=== PATIENT | female | born 1990 | race Caucasian/White ===

== ENCOUNTER 2016-10-19 16:10 | Observation (INO) | payer MEDICARE, MEDICAID ==
[~2016-10-19] VITALS: Ht 167.6 cm; Wt 115.0 kg
[~2016-10-19 16:10] MED LIST: ALPR.5 PO; CYMB30CA PO; CYMB60CA PO; GABA600T PO; LEVO.15 PO; LISD70 PO; NORE1CHW4 CHEW; REME15TA PO
[2016-10-19 16:13] VITALS: BP 136/95; PULSE 108; RESP 20; TEMP 98; O2SAT 94
--- NOTE | 2016-10-19 16:34 | PD ---
HPI Chief Complaint: GI Complaint Time Seen by Provider: 16:34 Travel History International Travel<30 days: No Contact w/Intl Traveler<30days: No Traveled to known affect area: No History of Present Illness HPI 26-year-old female with history of 4-5 day history of nausea, vomiting , and diarrhea. Patient states all family has had similar symptoms. However today, the patient has developed worsening right-sided abdominal pain with radiation to the right flank and shoulder. Patient states a history of having her gallbladder out several years ago. Patient is felt febrile and chills. Patient denies chest pain, shortness of breath, or cough. Patient has no upper respiratory symptoms. Patient states her diarrhea is slowing down the last 24 hours, and she has not vomited since yesterday. Patient has been trying to keep fluids up, but has no appetite for food. Patient has allergies to Diamox, eggs, lactose, latex, penicillin, and vancomycin. She has an MRI precaution due to a shunt due to a skull malformation at . PFSH Past Medical History Arthritis: No Asthma: No Autoimmune Disease: No Blood Disorders: No Bipolar Disorder: Yes (BORDERLINE PERSONALITY) Anxiety: Yes Depression: Yes Heart Rhythm Problems: No Cancer: No Cardiovascular Problems: No High Cholesterol: No Chemotherapy: No Chest Pain: No Congestive Heart Failure: No COPD: No Cerebrovascular Accident: No Diabetes: No Diminished Hearing: No Endocrine: Yes (HYPOTHYROID) Gastrointestinal Disorders: Yes GERD: No Genitourinary: No Headaches: Yes Hepatitis: No Hiatal Hernia: No Hypertension: No Immune Disorder: No Implanted Vascular Access Dvce: Yes Kidney Stones: No Musculoskeletal: No Neurologic: Yes (CHIARI MALFORMATION TYPE 1, PSUEDOTUMOR, LEGALLY BLIND) Psychiatric: Yes ( PTSD) Reproductive: No Respiratory: No Immunizations Current: No Migraines: No Myocardial Infarction: No Radiation Therapy: No Renal Failure: No Seizures: No Sickle Cell Disease: No Sleep Apnea: No Thyroid Disease: Yes (HYPO) Ulcer: No ?: Not : 0 Para: 0 Miscarriage: 0 : 0 Past Surgical History Abdominal Surgery: Yes (CHOLECYSTECTOMY 06/2009) AICD: No Appendectomy: No Arteriovenous Shunt: No Body Medical Devices: LP & STUDENT SERVICES DIRECTOR SHUNTS Cardiac Surgery: No Cholecystectomy: Yes (2008) Ear Surgery: No Endocrine Surgery: No Eye Surgery: No Genitourinary Surgery: No Gynecologic Surgery: No Insulin Pump: No Joint Replacement: No Neurologic Surgery: Yes (LP [employer]UDENT SERVICES DIRECTOR SHUNT) Oral Surgery: No Pacemaker: No Thoracic Surgery: No Other Surgery: Yes (REVISIONS TO BOTH STUDENT SERVICES DIRECTOR AND LP SHUNTS) Social History Alcohol Use: Yes Tobacco Use: Yes (black and mild when drinks) Substance Use: No Allergies-Medications (Allergen,Severity, Reaction): Coded Allergies: Diamox (Verified Allergy, Severe, hives, 10/19/16) Egg Allergy (Verified Allergy, Severe, Hives, 10/19/16) Latex (Verified Allergy, Severe, ITCHING/RASH, 10/19/16) MRI PRECAUTION (Verified Allergy, Severe, NON MRI COMPATIBLE LUMBAR SHUNT 11/20/08 ([facility]), 10/19/16) Penicillin (Verified Allergy, Severe, Hives, 10/19/16) "ALL 'CILLINS" Vancomycin (Verified Allergy, Severe, ITCHING /PT STS HER DR GIVES HER BENADRYL & ZANTAC PRIOR TO , 10/19/16) Lactose (Verified Adverse Reaction, Severe, gi upset, 10/19/16) Reported Meds & Prescriptions Reported Meds & Active Scripts Active Vyvanse (Lisdexamfetamine Dimesylate) 70 Mg Cap 70 Mg PO DAILY Reported Cymbalta DR (Duloxetine HCl) 60 Mg Capdr 90 Mg PO DAILY Synthroid (Levothyroxine Sodium) Unknown Strength Tab 125 Mcg PO DAILY Xanax (Alprazolam) 0.5 Mg Tab 0.5 Mg PO BID PRN Review of Systems General / Constitutional: Positive: Fever, Chills Eyes: No: Visual changes HENT: No: Headaches Cardiovascular: No: Chest Pain or Discomfort Respiratory: No: Shortness of Breath Gastrointestinal: Positive: Nausea, Vomiting, Diarrhea, Abdominal Pain Genitourinary: Positive: Flank Pain, No: Urgency, Frequency, Dysuria, Discharge, Vaginal Bleeding Musculoskeletal: No: Pain Skin: No Rash Neurologic: No: Weakness Psychiatric: No: Depression Endocrine: No: Polydipsia Hematologic/Lymphatic: No: Easy Bruising Physical Exam Narrative GENERAL: Patient appears in moderate distress. SKIN: Warm and dry. No pallor. Normal turgor. HEAD: Atraumatic. Normocephalic. EYES: Pupils equal and round. No scleral icterus. No injection or drainage. ENT: No nasal bleeding or discharge. Mucous membranes pink and somewhat dry. Pharynx appears normal. Airway is patent. NECK: Trachea midline. Neck is supple nontender. CARDIOVASCULAR: Regular rate and rhythm. No murmurs gallops or rubs. RESPIRATORY: No accessory muscle use. Clear to auscultation. Breath sounds equal bilaterally. GASTROINTESTINAL: Abdomen soft, moderate diffuse epigastric and right upper abdomen discomfort with palpation, nondistended. No Chua's sign. Patient has mild to moderate CVA tenderness on the right. Hepatic and splenic margins not palpable. MUSCULOSKELETAL: Extremities without clubbing, cyanosis, or edema. No obvious deformities. NEUROLOGICAL: Awake and alert. No obvious cranial nerve deficits. Motor grossly within normal limits. Five out of 5 muscle strength in the arms and legs. Normal speech. PSYCHIATRIC: Appropriate mood and affect; insight and judgment normal. Data Data Last Documented VS Vital Signs Date Time Temp Pulse Resp B/P Pulse Ox O2 Delivery O2 Flow Rate FiO2 10/19/16 20:24 16 10/19/16 20:00 83 124/72 99 Room Air 10/19/16 16:13 98.0 Orders Complete Blood Count With Diff (10/19/16 16:49) Comprehensive Metabolic Panel (10/19/16 16:49) Lipase (10/19/16 16:49) Lactic Acid (10/19/16 16:49) Prothrombin Time / Inr (Pt) (10/19/16 16:49) Act Partial Throm Time (Ptt) (10/19/16 16:49) Urinalysis - C+S If Indicated (10/19/16 16:49) Ct Abd/Pel W Iv Contrast(Rout) (10/19/16 16:49) Iv Access Insert/Monitor (10/19/16 16:49) Ecg Monitoring (10/19/16 16:49) Oximetry (10/19/16 16:49) NPO (10/19/16 16:49) Morphine Inj (Morphine Inj) (10/19/16 17:00) Ondansetron Inj (Zofran Inj) (10/19/16 17:00) Pantoprazole Inj (Protonix Inj) (10/19/16 17:00) Sodium Chlor 0.9% 1000 Ml Inj (Ns 1000 M (10/19/16 16:49) Sodium Chloride 0.9% Flush (Ns Flush) (10/19/16 17:00) Electrocardiogram (10/19/16 16:49) Ketorolac Inj (Toradol Inj) (10/19/16 17:00) Ed Urine Pregnancytest Poc (10/19/16 16:49) Oral Contrast - Adult (10/19/16 16:59) Diatrizoate Liq ( Gastrotrace Liq) (10/19/16 17:42) Urine Culture (10/19/16 17:40) Creatine Kinase (Cpk) (10/19/16 18:24) Sodium Chlor 0.9% 1000 Ml Inj (Ns 1000 M (10/19/16 19:00) Iohexol 350 Inj (Omnipaque 350 Inj) (10/19/16 19:24) Hydromorphone Pf Inj (Dilaudid Pf Inj) (10/19/16 19:45) Ciprofloxacin 400 Mg Premix (Cipro 400 M (10/19/16 19:45) Labs Laboratory Tests Test 10/19/16 10/19/16 10/19/16 17:05 17:40 18:32 White Blood Count 7.7 TH/MM3 Red Blood Count 4.91 MIL/MM3 Hemoglobin 13.7 GM/DL Hematocrit 40.7 % Mean Corpuscular Volume 82.8 FL Mean Corpuscular Hemoglobin 27.9 PG Mean Corpuscular Hemoglobin 33.7 % Concent Red Cell Distribution Width 14.8 % Platelet Count 290 TH/MM3 Mean Platelet Volume 7.8 FL Neutrophils (%) (Auto) 60.5 % Lymphocytes (%) (Auto) 29.0 % Monocytes (%) (Auto) 5.9 % Eosinophils (%) (Auto) 3.8 % Basophils (%) (Auto) 0.8 % Neutrophils # (Auto) 4.6 TH/MM3 Lymphocytes # (Auto) 2.2 TH/MM3 Monocytes # (Auto) 0.5 TH/MM3 Eosinophils # (Auto) 0.3 TH/MM3 Basophils # (Auto) 0.1 TH/MM3 CBC Comment DIFF FINAL Differential Comment Sodium Level 141 MEQ/L Potassium Level 3.2 MEQ/L Chloride Level 109 MEQ/L Carbon Dioxide Level 23.6 MEQ/L Anion Gap 8 MEQ/L Blood Urea Nitrogen 6 MG/DL Creatinine 0.73 MG/DL Estimat Glomerular Filtration 95 ML/MIN Rate Random Glucose 99 MG/DL Lactic Acid Level 1.1 mmol/L Calcium Level 8.3 MG/DL Total Bilirubin 0.4 MG/DL Aspartate Amino Transf 24 U/L (AST/SGOT) Alanine Aminotransferase 47 U/L (ALT/SGPT) Alkaline Phosphatase 60 U/L Total Protein 7.5 GM/DL Albumin 3.4 GM/DL Lipase 118 U/L Urine Color DARK-YELLOW Urine Turbidity HAZY Urine pH 6.0 Urine Specific Section 1.046 Urine Protein 100 mg/dL Urine Glucose (UA) TRACE mg/dL Urine Ketones TRACE mg/dL Urine Occult Blood MOD Urine Nitrite NEG Urine Bilirubin SMALL Urine Urobilinogen 4.0 MG/DL Urine Leukocyte Esterase TRACE Urine RBC 2 /hpf Urine WBC 11 /hpf Urine WBC Clumps RARE Urine Squamous Epithelial 7 /hpf Cells Urine Hyaline Casts 70 /lpf Urine Granular Casts 12 /lpf Urine Mucus MANY /lpf Microscopic Urinalysis Comment CULTURE INDICATED Total Creatine Kinase 125 U/L MDM Medical Decision Making Medical Screen Exam Complete: Yes Emergency Medical Condition: Yes Differential Diagnosis Right upper abdominal pain. Gastritis. Renal colic. Pancreatitis. Biliary tract disease. Narrative Course Patient is medically stable at time of exam. Labs ordered including CBC, CMP, PT PTT and INR, Lactic acid, urinalysis, lipase. IV access is obtained patient is given 1000 and a normal saline bolus. Patient is given 4 mg Zofran IV. Patient is given 40 mg pantoprazole IV. Patient is given 30 mg Toradol IV. EKG is ordered. CT of the abdomen is ordered with IV and oral contrast. EKG shows normal sinus rhythm without ST changes. This is reviewed by Dr. Ramirez. CBC is unremarkable. Sodium is 141, potassium 3.2, chloride 109, BUN 6, creatinine 0.73, calcium 8.3. Lipase is normal. LFTs are normal. Alkaline phosphatase is 60. Total creatinine kinase is 125. Urine shows dark yellow hazy with a pH is 6.0, specific gravity 1.046, protein is 100, trace glucose, ketones, moderate occult blood small bilirubin, urobilinogen of 4.0, trace of glucose site esterase. Urine rbc's are 2, diureses 11, MB seek clumps are rare. Urine culture is ordered. CT scan is unremarkable for acute process per radiologist. Patient returns to emergency department and gets 400 mg Cipro IV, as well as 1 mg hydromorphone IV. Patient is given a second 1 L bolus of normal saline. Patient is discussed with Dr. Chin who recommended bringing the patient for observation she is unable to keep solid pills down, and is obviously dehydrated and in intractable pain. 2009 hrs. call was placed to the hospitalist for observation admission. 2024 hrs. patient is discussed with Dr. Chanel. Diagnosis Primary Impression: Pyelonephritis Additional Impressions: Intractable abdominal pain Nausea & vomiting Qualified Code: R11.2 - Non-intractable vomiting with nausea, unspecified vomiting type Dehydration Admitting Information Admitting Physician Requests: Observation Condition: Stable Carl Gabriel Oct 19, 2016 16:34
[2016-10-19 16:40] VITALS: BP 121/86; PULSE 91; RESP 16; O2SAT 99
[2016-10-19] MEDS ORDERED: CYMB60CA PO (16:47)
[2016-10-19] MEDS ORDERED: SODIUM CHLOR 0.9% 1000 ML INJ 1,000 ML IV SCH ×2 (16:49→22:00)
[2016-10-19] MEDS ORDERED: KETOROLAC TROMETHAMINE 30 MG/ML (IVP) VIAL IVP ONE (17:00)
[2016-10-19] MEDS ORDERED: SODIUM CHLORIDE 0.9% FLUSH 5 ML FLUSH IVF PRN (17:00)
[2016-10-19] MEDS ORDERED: PANTOPRAZOLE SODIUM 40 MG VIAL IVP ONE (17:00)
[2016-10-19] MEDS ORDERED: ONDANSETRON HCL 4 MG/2 ML VIAL IVP ONE (17:00)
[2016-10-19] MEDS ORDERED: MORPHINE SULFATE 4 MG/ML INJ IV PUSH ONE (17:00)
[2016-10-19 17:21] LABS: AUTOMATED NEUTROPHIL # 4.6 TH/MM3 (1.8-7.7); BASOPHIL # 0.1 TH/MM3 (0-0.2); BASOPHIL % 0.8 % (0.0-2.0); EOSINOPHIL # 0.3 TH/MM3 (0-0.4); EOSINOPHIL % 3.8 % (0.0-4.0); HEMATOCRIT 40.7 % (35.0-46.0); HEMO FLAGS DIFF FINAL; LYMPHOCYTE # 2.2 TH/MM3 (1.0-4.8); MEAN CELL VOLUME 82.8 FL (80.0-100.0); MEAN CORPUSCULAR HEMOGLOBIN 27.9 PG (27.0-34.0); MEAN CORPUSCULAR HGB CONC 33.7 % (32.0-36.0); MONO % 5.9 % (0.0-8.0); NEUT % 60.5 % (16.0-70.0); PLATELET COUNT 290 TH/MM3 (150-450); RED BLOOD COUNT 4.91 MIL/MM3 (4.00-5.30); RED CELL DISTRIBUTION WIDTH 14.8 % (11.6-17.2); WHITE BLOOD COUNT 7.7 TH/MM3 (4.0-11.0)
[2016-10-19 17:30] VITALS: BP 129/78; PULSE 90; RESP 22; O2SAT 100
[2016-10-19 17:40] LABS: ALT (GPT) 47 U/L (10-53); ANION GAP 8 MEQ/L (5-15); AST (GOT) 24 U/L (15-37); BICARBONATE 23.6 MEQ/L (21.0-32.0); BLOOD UREA NITROGEN 6 MG/DL (7-18); CHLORIDE 109 MEQ/L (98-107); GLOMERULAR FILTRATION RATE 95 ML/MIN (>89); POTASSIUM 3.2 MEQ/L (3.5-5.1); SODIUM (NA) 141 MEQ/L (136-145)
[2016-10-19] MEDS ORDERED: DIATRIZOATE MEGLUM/DIATRIZOATE SOD 9 ML CUP ONE (17:42)
[2016-10-19 17:43] LABS: ALKALINE PHOSPHATASE 60 U/L (45-117); TOTAL BILIRUBIN ADULT 0.4 MG/DL (0.2-1.0)
[2016-10-19 17:53] VITALS: O2SAT 97
[2016-10-19 18:05] LABS: BLOOD, URINE MOD (NEG); COMMENT (UR) CULTURE INDICATED; CULTURE IF INDICATED CULTURE INDICATED; GLUCOSE,URINE TRACE mg/dL (NEG); GRANULAR CAST, URINE 12 /lpf; HYALINE CAST, URINE 70 /lpf (RARE); KETONE, URINE TRACE mg/dL (NEG); MUCUS URINE MANY /lpf (OCC); NITRITE,URINE NEG (NEG); SQUAMOUS EPITHELIAL CELL URINE 7 /hpf (0-5); URINE COLOR DARK-YELLOW (YELLW/STRAW)
[2016-10-19] MEDS ORDERED: SODIUM CHLOR 0.9% 1000 ML INJ 1,000 ML IV ONE (19:00)
[2016-10-19] MEDS ORDERED: IOHEXOL 350 MG/ML 10 ML VIAL (for RAD DIAG) IV ONE (19:24)
[2016-10-19] MEDS ORDERED: CIPROFLOXACIN 400 MG PREMIX 200 ML IV ONE (19:45)
[2016-10-19] MEDS ORDERED: HYDROmorphone HCL PF 1 MG/ML VIAL IV PUSH ONE (19:45)
--- NOTE | 2016-10-19 19:46 | RADRPT ---
EXAM DATE/TIME: 10/19/2016 19:04 [facility] COMPARISON: No previous studies available for comparison. INDICATIONS : Right flank pain today and flu like symptoms for one week. IV CONTRAST: 95 cc Omnipaque 350 (iohexol) IV ORAL CONTRAST: Prescribed oral contrast ingested. RADIATION DOSE: 24.10 CTDIvol (mGy) MEDICAL HISTORY : None SURGICAL HISTORY : Cholecystectomy. ENCOUNTER: Initial ACUITY: 1 day PAIN SCALE: 6/10 LOCATION: Right flank TECHNIQUE: Volumetric scanning of the abdomen and pelvis was performed. Using automated exposure control and adjustment of the mA and/or kV according to patient size, radiation dose was kept as low as reasonably achievable to obtain optimal diagnostic quality images. FINDINGS: LOWER LUNGS: The visualized lower lungs are clear. LIVER: Homogeneous density without lesion. There is no dilation of the biliary tree. No calcifi ed gallstones. SPLEEN: Normal size without lesion. PANCREAS: Within normal limits. KIDNEYS: Normal in size and shape. There is no mass, stone or hydronephrosis. ADRENAL GLANDS: Within normal limits. VASCULAR: There is no aortic aneurysm. BOWEL/MESENTERY: The stomach, small bowel, and colon demonstrate no acute abnormality. There is no free intraperitoneal air or fluid. ABDOMINAL WALL: Within normal limits. RETROPERITONEUM: There is no lymphadenopathy. BLADDER: No wall thickening or mass. REPRODUCTIVE: Within normal limits. INGUINAL: There is no lymphadenopathy or hernia. MUSCULOSKELETAL: Within normal limits for patient age. Shunt is evident. CONCLUSION: Negative for acute process. Krystian Mario MD FACR on October 19, 2016 at 19:43 Board Certified Radiologist. This report was verified electronically.
[2016-10-19 20:00] VITALS: BP 124/72; PULSE 83; RESP 16; O2SAT 99
[2016-10-19 20:52] LABS: APTT (PATIENT) 27.8 SEC (24.3-30.1); PROTHROMBIN TIME - PATIENT 11.3 SEC (9.8-11.6)
[2016-10-19] MEDS ORDERED: ALPRAZolam 0.5 MG TAB PO PRN (22:00)
[2016-10-19] MEDS ORDERED: SODIUM CHLORIDE 0.9% FLUSH 5 ML FLUSH FLUSH PRN (22:00)
[2016-10-19] MEDS ORDERED: NALOXONE HCL 0.4 MG/ML AMP IV PRN (22:00)
--- NOTE | 2016-10-19 22:03 | HHI.HP ---
[facility] Service [facility] Primary Care Physician ASHLY Arias Admission Diagnosis Pylonephritis/Vomiting/Dehydration/Intractible abd. pain Diagnoses: Chief Complaint: abdominal pain Travel History International Travel<30 Days: No Contact w/Intl Traveler <30 Da: No Traveled to Known Affected Are: No History of Present Illness History from patient, ER PA communication, and review of medical records. Patient reported that she came to the hospital because she is having right upper quadrant pain which is radiating to her right flank which started today. She states that she has been having stomach flu for the past 1 week. When asked about clarification, patient stated that she was having nausea, vomiting, diarrhea with subjective fevers for the past 1 week. Her family members also have been sick with similar symptoms. She reports her vomiting and her diarrhea is more than 5 times a day at that time. However denies any blood in her vomit or diarrhea. Denies any urinary burning or pain on urination or frequent urination. She states that the diarrhea and the vomiting has now stopped somewhat. She states she took Imodium for this. Patient denies working at healthcare facilities or nursing homes. However her boyfriend works at a hospital. Denies any prior antibiotics use or history of C. difficile. Denies being a diabetic. Patient does report of history of Arnold-Chiari malformation for which she has a SUPERVISOR PASTE MIXING shunt. The last shunt that was placed was 5 years ago. She stated she has a total of 15 procedures in her lifetime for this SUPERVISOR PA[employer] MIX[employer] shunt. Mostly it is revisions or removal of the shunt due to infection. She states for the past 5 years though, she has been free of any complications from this SUPERVISOR PA[employer] M[employer] shunt. She reports that when she presented again with SUPERVISOR PA[employer] M[employer] shunt infection, she usually would have abdominal pain first. She then would start having some headaches about 2-3 days later. She usually does not mount any fever. Usually also does not have leukocytosis or lab abnormalities to suggest infection. However when they removed her SUPERVISOR PA[employer] M[employer] shunt, the cultures were positive and she had to be on antibiotics long-term and hospitalized long-term. At this point, patient states she is not worried about her SUPERVISOR PA[employer] M[employer] shunt infection. She denies having any headaches. Like getting any neck rigidity. She does have some visual disturbances but this is her baseline status and she is also legally blind. Her neurosurgeon is Dr. Shelton at [facility]. Patient reports that if she has to have any manipulations or procedures for her SUPERVISOR PA[employer] M[employer] shunt, she would like to be transferred to [facility] where her neurosurgeon is. Review of Systems Constitutional: COMPLAINS OF: Diaphoretic episodes, Fever (subjective fevers), Chills, DENIES: Fatigue, Weight gain, Weight loss Eyes: COMPLAINS OF: Vision loss Respiratory: DENIES: Apneas, Cough, Snoring, Wheezing, Sputum production, Shortness of breath Cardiovascular: DENIES: Chest pain, Palpitations, Syncope, Dyspnea on Exertion , PND, Lower Extremity Edema Gastrointestinal: COMPLAINS OF: Abdominal pain, Diarrhea, Nausea, Vomiting, DENIES: Black stools, Bloody stools, Constipation Genitourinary: DENIES: Urinary frequency, Urinary incontinence, Urgency, Hematuria, Dysuria, Nocturia Neurologic: DENIES: Abnormal gait, Headache, Seizures, Poor Balance Past Family Social History Past Medical History Arnold-Chiari malformation Visual impairment Status post SUPERVISOR PASTE MIX[employer] shunt placementwith multiple revisions and replacements 15. Last one was 5 years ago. History of SUPERVISOR PASTE MIX[employer] shunt infections Anxiety/depression Hypothyroidism Past Surgical History SUPERVISOR PASTE MIXING shunt Revision/replacement Cholecystectomy Reported Medications Patient's medications list on EMRreviewed Allergies: Coded Allergies: Diamox (Verified Allergy, Severe, hives, 10/19/16) Egg Allergy (Verified Allergy, Severe, Hives, 10/19/16) Latex (Verified Allergy, Severe, ITCHING/RASH, 10/19/16) MRI PRECAUTION (Verified Allergy, Severe, NON MRI COMPATIBLE LUMBAR SHUNT 11/20/08 ([facility]), 10/19/16) Penicillin (Verified Allergy, Severe, Hives, 10/19/16) "ALL 'CILLINS" Vancomycin (Verified Allergy, Severe, ITCHING /PT STS HER DR GIVES HER BENADRYL & ZANTAC PRIOR TO , 10/19/16) Lactose (Verified Adverse Reaction, Severe, gi upset, 10/19/16) Family History Reports she has only limited family history as she was mostly in foster care. States that her mother from eclampsia/preeclampsia. Social History Smokes about half a pack a day. Denies any alcohol abuse or drug abuse. Physical Exam Vital Signs Vital Signs Date Time Temp Pulse Resp B/P Pulse Ox O2 Delivery O2 Flow Rate FiO2 10/19/16 20:24 16 10/19/16 20:00 83 16 124/72 99 Room Air 10/19/16 19:00 16 10/19/16 19:00 16 10/19/16 17:53 97 Room Air 10/19/16 17:30 90 22 129/78 100 Room Air 10/19/16 16:40 91 16 121/86 99 Room Air 10/19/16 16:13 98.0 108 20 136/95 94 Room Air Physical Exam GENERAL: This is a well-nourished, well-developed patient, in no apparent distress. SKIN: No rashes, ecchymoses or lesions. Cool and dry. HEAD: Atraumatic. Normocephalic. No temporal or scalp tenderness. EYES: No scleral icterus. No injection or drainage. ENT: Nose without bleeding, purulent drainage or septal hematoma. Airway patent. NECK: Trachea midline. No JVD. Supple, nontender, no meningeal signs. CARDIOVASCULAR: Regular rate and rhythm without murmurs, gallops, or rubs. RESPIRATORY: Clear to auscultation. Breath sounds equal bilaterally. No wheezes , rales, or rhonchi. GASTROINTESTINAL: Abdomen soft, nondistended. No guarding. Tenderness at right upper quadrant abdomen and right flank area MUSCULOSKELETAL: Extremities without clubbing, cyanosis, or edema. No calf tenderness. NEUROLOGICAL: Awake and alert. Motor and sensory grossly within normal limits. Normal speech. Laboratory Laboratory Tests Test 10/19/16 10/19/16 10/19/16 10/19/16 17:05 17:40 18:32 20:03 White Blood Count 7.7 Red Blood Count 4.91 Hemoglobin 13.7 Hematocrit 40.7 Mean Corpuscular Volume 82.8 Mean Corpuscular Hemoglobin 27.9 Mean Corpuscular Hemoglobin 33.7 Concent Red Cell Distribution Width 14.8 Platelet Count 290 Mean Platelet Volume 7.8 Neutrophils (%) (Auto) 60.5 Lymphocytes (%) (Auto) 29.0 Monocytes (%) (Auto) 5.9 Eosinophils (%) (Auto) 3.8 Basophils (%) (Auto) 0.8 Neutrophils # (Auto) 4.6 Lymphocytes # (Auto) 2.2 Monocytes # (Auto) 0.5 Eosinophils # (Auto) 0.3 Basophils # (Auto) 0.1 CBC Comment DIFF FINAL Differential Comment Sodium Level 141 Potassium Level 3.2 Chloride Level 109 Carbon Dioxide Level 23.6 Anion Gap 8 Blood Urea Nitrogen 6 Creatinine 0.73 Estimat Glomerular Filtration 95 Rate Random Glucose 99 Lactic Acid Level 1.1 Calcium Level 8.3 Total Bilirubin 0.4 Aspartate Amino Transf 24 (AST/SGOT) Alanine Aminotransferase 47 (ALT/SGPT) Alkaline Phosphatase 60 Total Protein 7.5 Albumin 3.4 Lipase 118 Urine Color DARK-YELLOW Urine Turbidity HAZY Urine pH 6.0 Urine Specific [place] 1.046 Urine Protein 100 Urine Glucose (UA) TRACE Urine Ketones TRACE Urine Occult Blood MOD Urine Nitrite NEG Urine Bilirubin SMALL Urine Urobilinogen 4.0 Urine Leukocyte Esterase TRACE Urine RBC 2 Urine WBC 11 Urine WBC Clumps RARE Urine Squamous Epithelial 7 Cells Urine Hyaline Casts 70 Urine Granular Casts 12 Urine Mucus MANY Microscopic Urinalysis Comment CULTURE INDICATED Total Creatine Kinase 125 Prothrombin Time 11.3 Prothromb Time International 1.0 Ratio Activated Partial 27.8 Thromboplast Time Date/Time Procedure Status Source Growth 10/19/16 17:40 Urine Culture Received Urine Clean Catch Pending Result Diagram: 10/19/16 1705 10/19/16 1705 Imaging Last 48 hours Impressions Abdomen/Pelvis CT 10/19/16 1649 Signed Impressions: Service Date/Time: October 19:04 - CONCLUSION: Negative for acute process. Krystian Mario MD FACR Assessment and Plan Problem List: (1) Nausea & vomiting ICD Code: R11.2 Status: Acute (2) Intractable abdominal pain ICD Code: R10.9 Status: Acute (3) Pyelonephritis ICD Code: N12 Status: Acute (4) Dehydration ICD Code: E86.0 Status: Acute Assessment and Plan Impression: UTI Likely pyelonephritisgiven that patient has nausea/vomiting/flank pain. Possible gastroenteritisresolving per patient's history. Has sick contact with similar symptoms as well. Rule out peritonitis given that patient has SUPERVISOR PA[employer] M[employer] shunt. Arnold-Chiari malformation Visual impairment Status post SUPERVISOR PA[employer] M[employer] shunt placementwith multiple revisions and replacements 15. Last one was 5 years ago. History of SUPERVIS[employer] M[employer] shunt infections Anxiety/depression Hypothyroidism Plan: IV hydration. We'll follow up blood cultures and urine culture results. Start patient on Cipro 400 mg IV every 12 hours with Flagyl 500 mg IV every 6 hours. We'll follow up clinically. CT abdomen and pelvis with IV contrastpersonally reviewed. No evidence of perforated ulcers/appendicitis. At this point, patient does not have any headache/neck rigidity/high-grade fevers to suspect SUPER[employer] shunt infection. Patient is well versed in her medical conditions. She states that she usually presents with normal blood work, normal white count, negative blood cultures, with abdominal pain which is usually followed 2 or 3 days later by headaches whenever she had SUPER[employer] shunt infections. At present, she absolutely denies any symptoms similar to the SUPER[employer] shunt infection symptoms. If in fact, we do suspect SUPER[employer] PA[employer] shunt infection or if cultures are positive, patient would like to be transferred to [facility] under the care of her neurosurgeon Dr. Shelton. Resume her home medications. DVT prophylaxiswith Lovenox Discussed Condition With Patient, ER physician Problem Qualifiers (1) Nausea & vomiting: Qualified Code: R11.2 - Non-intractable vomiting with nausea, unspecified vomiting type Connie Chanel MD Oct 19, 2016 22:03
[2016-10-19 22:30] VITALS: BP 121/71; PULSE 86; RESP 16; O2SAT 98
[2016-10-19] MEDS: metroNIDAZOLE 500 MG INJ 100 ML IV SCH (22:53)
[2016-10-19] MEDS: NS + KCL 40 MEQ INJ 1,000 ML IV SCH (23:15)
[2016-10-19] MEDS: POTASSIUM CHLOR 20 MEQ PREMIX 100 ML IV SCH (23:47)
[2016-10-20] VITALS (10 sets, daily range): BP systolic 102–135; BP diastolic 51–78; PULSE 53–94; RESP 18–20; TEMP 97.2–98.2; O2SAT 93–98
[2016-10-20] MEDS: HYDROmorphone HCL PF 1 MG/ML VIAL IV PUSH PRN ×5 (00:09→19:49)
[2016-10-20] MEDS: POTASSIUM CHLOR 20 MEQ PREMIX 100 ML IV SCH (02:18)
[2016-10-20] MEDS: metroNIDAZOLE 500 MG INJ 100 ML IV SCH ×4 (04:02→22:16)
[2016-10-20 04:31] LABS: AUTOMATED NEUTROPHIL # 2.8 TH/MM3 (1.8-7.7); BASOPHIL % 0.4 % (0.0-2.0); EOSINOPHIL # 0.2 TH/MM3 (0-0.4); EOSINOPHIL % 3.4 % (0.0-4.0); HEMO FLAGS DIFF FINAL; LYMPH % 45.1 % (9.0-44.0); LYMPHOCYTE # 2.9 TH/MM3 (1.0-4.8); MEAN CELL VOLUME 83.6 FL (80.0-100.0); MEAN CORPUSCULAR HGB CONC 33.5 % (32.0-36.0); NEUT % 44.1 % (16.0-70.0); PLATELET COUNT 257 TH/MM3 (150-450); RED BLOOD COUNT 4.18 MIL/MM3 (4.00-5.30); WHITE BLOOD COUNT 6.4 TH/MM3 (4.0-11.0)
[2016-10-20 05:12] LABS: BICARBONATE 25.2 MEQ/L (21.0-32.0); CALCIUM-PROTEIN CORRECTED 7.7 MG/DL (8.5-10.1); POTASSIUM 3.6 MEQ/L (3.5-5.1); TOTAL BILIRUBIN ADULT 0.4 MG/DL (0.2-1.0)
[2016-10-20] MEDS: NS + KCL 40 MEQ INJ 1,000 ML IV SCH ×2 (05:23→12:57)
[2016-10-20] MEDS: LEVOTHYROXINE SODIUM 125 MCG TAB PO SCH (05:23)
[2016-10-20] MEDS ORDERED: LISDEXAMFETAMINE DIMESYLATE 30 MG CAP PO SCH (09:00)
[2016-10-20] MEDS ORDERED: LISDEXAMFETAMINE DIMESYLATE 20 MG CAP PO SCH (09:00)
[2016-10-20] MEDS: SODIUM CHLORIDE 0.9% FLUSH 5 ML FLUSH FLUSH SCH ×2 (09:00→22:16)
[2016-10-20] MEDS ORDERED: [UNRECOGNIZED DRUG - OTHER] PO SCH (09:00)
[2016-10-20] MEDS ORDERED: LISDEXAMFETAMINE PO SCH (09:00)
[2016-10-20] MEDS: CIPROFLOXACIN 400 MG PREMIX 200 ML IV SCH ×2 (09:37→19:47)
[2016-10-20] MEDS: ENOXAPARIN SODIUM 40 MG/0.4 ML SYRINGE SQ SCH (09:38)
[2016-10-20] MEDS: DULoxetine HCl DR 30 MG CAP PO SCH (09:38)
[2016-10-20] MEDS: ONDANSETRON HCL 4 MG/2 ML VIAL IVP PRN ×2 (13:08→19:46)
--- NOTE | 2016-10-20 14:15 | HHI.PR ---
Subjective Remarks Follow up for intractable nausea/vomiting/diarrhea with RUQ/flank pain, UTI. The patient reports feeling slightly better today. Abdominal pain improved. No further nausea/vomiting since yesterday. Only having very small amounts of diarrhea. Denies fevers/chills. Denies any dysuria, increased urinary frequency/ urgency. She was able to tolerate broth for breakfast this morning. She states everyone in her family had the same illness and is better now, however it always takes her longer to recover. Discussed with the patient's significant other (with permission from the patient) who is a nurse here at [employer]. Objective Vitals Vital Signs Date Time Temp Pulse Resp B/P Pulse Ox O2 Delivery O2 Flow Rate FiO2 10/20/16 11:47 97.2 81 20 104/53 94 10/20/16 08:00 71 10/20/16 07:14 98.2 80 18 135/60 93 10/20/16 05:00 98.2 87 18 129/72 97 10/20/16 01:02 94 10/20/16 00:57 97.9 78 18 133/78 98 10/19/16 22:30 86 16 121/71 98 Room Air 10/19/16 20:24 16 10/19/16 20:00 83 16 124/72 99 Room Air 10/19/16 19:00 16 10/19/16 19:00 16 10/19/16 17:53 97 Room Air 10/19/16 17:30 90 22 129/78 100 Room Air 10/19/16 16:40 91 16 121/86 99 Room Air 10/19/16 16:13 98.0 108 20 136/95 94 Room Air Result Diagram: 10/20/16 0345 10/20/16 0345 Imaging Last Impressions Abdomen/Pelvis CT 10/19/16 1649 Signed Impressions: Service Date/Time: October 19:04 - CONCLUSION: Negative for acute process. Krystian Mario MD FACR Objective Remarks GENERAL: Well-nourished, well-developed female patient in [facility]. SKIN: Warm and dry. No rash. HEAD: Normocephalic. Atraumatic. EYES: Pupils equal and round. No scleral icterus. No injection or drainage. ENT: No nasal bleeding or discharge. Mucous membranes pink and moist. NECK: Supple. Trachea midline. CARDIOVASCULAR: Regular rate and rhythm. S1, S2 noted. No murmur appreciated. RESPIRATORY: No accessory muscle use. Clear to auscultation. Breath sounds equal bilaterally. GASTROINTESTINAL: Abdomen soft, non-tender, nondistended. Normoactive bowel sounds x4. MUSCULOSKELETAL: No obvious deformities. Extremities without clubbing, cyanosis , or edema. NEUROLOGICAL: Awake and alert. No obvious cranial nerve deficits. Motor grossly within normal limits. Normal speech. PSYCHIATRIC: Appropriate mood and affect; insight and judgment normal. Medications and IVs Current Medications Medications (Trade) Dose Ordered Sig/Pedro Route Start Time Stop Time Status Last Admin (NS Flush) 2 ml UNSCH PRN FLUSH 10/19/16 22:00 (NS Flush) 2 ml BID FLUSH 10/20/16 09:00 (Zofran Inj) 4 mg Q6H PRN IVP 10/19/16 22:00 10/20/16 13:08 (Lovenox Inj) 40 mg Q24H SQ 10/20/16 09:00 10/20/16 09:38 (Narcan Inj) 0.4 mg UNSCH PRN IV 10/19/16 22:00 Hydromorphone HCl 1 mg 1 mg Q3H PRN IV PUSH 10/19/16 22:00 10/20/16 12:57 Ciprofloxacin/ Dextrose 200 ml @ 200 mls/hr Q12H IV 10/20/16 09:00 10/20/16 09:37 Metronidazole 100 ml @ 100 mls/hr Q6H IV 10/19/16 22:00 10/20/16 09:36 (NS + KCl 40 Meq Inj) 1,000 ml @ 125 mls/hr Q8H IV 10/19/16 22:00 10/20/16 12:57 (Xanax) 0.5 mg BID PRN PO 10/19/16 22:00 (Cymbalta Dr) 90 mg DAILY PO 10/20/16 09:00 10/20/16 09:38 (Synthroid) 125 mcg DAILY@06 PO 10/20/16 06:00 10/20/16 05:23 Non-Formulary Medication 1 ea DAILY PO 10/20/16 09:00 Hold Urinary Catheter: No Vascular Central Line Catheter: No A/P Problem List: (1) Nausea & vomiting ICD Code: R11.2 Status: Acute (2) Intractable abdominal pain ICD Code: R10.9 Status: Acute (3) Pyelonephritis ICD Code: N12 Status: Acute (4) Dehydration ICD Code: E86.0 Status: Acute Assessment and Plan 26-year-old female with hx of Arnold-Chiari malformation with shunt placement, visual impairment, anxiety/depression, hypothyroidism, presents with intractable N/V/D/abdominal pain. Intractable Nausea/Vomiting/Diarrhea/Abdominal Pain: suspect gastroenteritis, possible C.diff (with exposure to significant other who is a nurse) or Norovirus. Recent sick contacts. -CT abd/pelvis images reviewed by me, no acute findings -Started on IV Cipro/Flagyl -check stool studies, C.diff PCR, and Norovirus -start on PPI for now -supportive treatment with IVF, antiemetics, pain control prn. -diet as tolerated UTI: possible pyelonephritis with R flank pain, and UA + leuks, WBCs; however patient without any fever/dysuria/frequency/urgency -continue on IV Cipro as above -monitor urine culture. Hypokalemia: K 3.2 upon arrival, likely secondary to GI losses as above -given po and IV KCl replacement -repeat BMP with K 3.6, monitor. Arnold-Chiari malformation, Visual impairment, s/p [employer] shunt placementwith multiple revisions and replacements 15. Last one was 5 years ago. -does not appear to be causing symptoms at this time, no headache, no signs of infection -continue outpatient follow up with her neurosurgeon Dr. Shelton Anxiety/depression: chronic, continue patient's Cymbalta and Xanax prn. Hypothyroidism: chronic, continue patient's Synthroid. DVT Prophylaxis: lovenox Written by Piper Shea, acting as scribe for Dr. Mckeon on 10/20/16 at 09:50. Attending Statement The documentation accurately reflects the work performed [id number] by me, Dr. Mckeon on 10/20/16 at 09:50. Problem Qualifiers (1) Nausea & vomiting: Qualified Code: R11.2 - Non-intractable vomiting with nausea, unspecified vomiting type Piper Shea PA-C Oct 20, 2016 14:15 Ronaldo Mckeon MD Oct 30, 2016 17:51
--- NOTE | 2016-10-20 18:35 | EKG ---
Date Performed: 10/19/2016 Time Performed: 17:56:42 PTAGE: 26 years EKG: Sinus rhythm NONSPECIFIC T-WAVE ABNORMALITY BORDERLINE ECG PREVIOUS TRACING : 09/18/2012 10.30 Since previous tracing, no significant change noted DOCTOR: Stacie Elizondo Interpretating Date/Time 10/20/2016 18:33:54
[2016-10-21] VITALS: PULSE 68
[2016-10-21] MEDS: HYDROmorphone HCL PF 1 MG/ML VIAL IV PUSH PRN ×2 (01:07→05:58)
[2016-10-21] MEDS: NS + KCL 40 MEQ INJ 1,000 ML IV SCH ×3 (02:13→12:01)
[2016-10-21] MEDS: ONDANSETRON HCL 4 MG/2 ML VIAL IVP PRN ×2 (02:15→10:25)
[2016-10-21 04:00] VITALS: PULSE 67
[2016-10-21 04:05] VITALS: BP 117/64; PULSE 65; RESP 20; TEMP 98.2; O2SAT 95
[2016-10-21] MEDS: metroNIDAZOLE 500 MG INJ 100 ML IV SCH ×2 (04:10→09:35)
[2016-10-21] MEDS: LEVOTHYROXINE SODIUM 125 MCG TAB PO SCH (05:57)
[2016-10-21 07:00] VITALS: PULSE 65
[2016-10-21] MEDS: CIPROFLOXACIN 400 MG PREMIX 200 ML IV SCH (07:57)
[2016-10-21] MEDS ORDERED: ACETAMINOPHEN/HYDROcodone 325 MG/5 MG TAB PO PRN ×2 (08:00→09:00)
[2016-10-21] MEDS: SODIUM CHLORIDE 0.9% FLUSH 5 ML FLUSH FLUSH SCH (08:00)
[2016-10-21] MEDS: DULoxetine HCl DR 30 MG CAP PO SCH (08:01)
[2016-10-21] MEDS: ENOXAPARIN SODIUM 40 MG/0.4 ML SYRINGE SQ SCH (08:01)
--- NOTE | 2016-10-21 08:01 | HHI.PR ---
Subjective Remarks Follow up for intractable nausea/vomiting/diarrhea with RUQ/flank pain, gastroenteritis, UTI. The patient reports feeling better again today. She does report right flank pain and nausea after eating solid food last night however she was able to keep down some rice and chicken. Denies any vomiting. Still has not had a bowel movement since her arrival. Denies fevers or chills. Still denies any urinary symptoms. She would like to stick with full liquid diet and go home today if she tolerates. Objective Vitals Vital Signs Date Time Temp Pulse Resp B/P Pulse Ox O2 Delivery O2 Flow Rate FiO2 10/21/16 04:05 98.2 65 20 117/64 95 10/21/16 04:00 67 10/21/16 00:00 68 10/20/16 23:33 98.1 68 20 102/51 97 10/20/16 20:37 97.9 66 20 129/64 95 10/20/16 20:00 80 10/20/16 15:48 97.6 53 18 131/53 95 10/20/16 11:47 97.2 81 20 104/53 94 10/20/16 08:00 71 I/O 10/20/16 10/20/16 10/20/16 10/21/16 10/21/16 10/21/16 07:00 15:00 23:00 07:00 15:00 23:00 Intake Total 1206 ml Balance 1206 ml Intake IV Total 1206 ml # Voids 2 Result Diagram: 10/20/16 0345 10/20/16 0345 Imaging Last Impressions Abdomen/Pelvis CT 10/19/16 1649 Signed Impressions: Service Date/Time: October 19:04 - CONCLUSION: Negative for acute process. Krystian Mario MD FACR Objective Remarks GENERAL: Well-nourished, well-developed female patient in [facility]. SKIN: Warm and dry. No rash. HEAD: Normocephalic. Atraumatic. ENT: No nasal bleeding or discharge. Mucous membranes pink and moist. NECK: Supple. Trachea midline. CARDIOVASCULAR: Regular rate and rhythm. S1, S2 noted. No murmur appreciated. RESPIRATORY: No accessory muscle use. Clear to auscultation. Breath sounds equal bilaterally. GASTROINTESTINAL: Abdomen soft, non-tender, nondistended. Normoactive bowel sounds x4. MUSCULOSKELETAL: No obvious deformities. Extremities without clubbing, cyanosis , or edema. Right lateral flank mildly tender to palpation; no overlying rash. NEUROLOGICAL: Awake and alert. No obvious cranial nerve deficits. Motor grossly within normal limits. Normal speech. PSYCHIATRIC: Appropriate mood and affect; insight and judgment normal. Medications and IVs Current Medications Medications (Trade) Dose Ordered Sig/Pedro Route Start Time Stop Time Status Last Admin (NS Flush) 2 ml UNSCH PRN FLUSH 10/19/16 22:00 (NS Flush) 2 ml BID FLUSH 10/20/16 09:00 10/20/16 22:16 (Zofran Inj) 4 mg Q6H PRN IVP 10/19/16 22:00 10/21/16 02:15 (Lovenox Inj) 40 mg Q24H SQ 10/20/16 09:00 10/20/16 09:38 (Narcan Inj) 0.4 mg UNSCH PRN IV 10/19/16 22:00 Hydromorphone HCl 1 mg 1 mg Q3H PRN IV PUSH 10/19/16 22:00 10/21/16 05:58 Ciprofloxacin/ Dextrose 200 ml @ 200 mls/hr Q12H IV 10/20/16 09:00 10/20/16 19:47 Metronidazole 100 ml @ 100 mls/hr Q6H IV 10/19/16 22:00 10/21/16 04:10 (NS + KCl 40 Meq Inj) 1,000 ml @ 125 mls/hr Q8H IV 10/19/16 22:00 10/21/16 02:13 (Xanax) 0.5 mg BID PRN PO 10/19/16 22:00 (Cymbalta Dr) 90 mg DAILY PO 10/20/16 09:00 10/20/16 09:38 (Synthroid) 125 mcg DAILY@06 PO 10/20/16 06:00 10/21/16 05:57 Non-Formulary Medication 1 ea DAILY PO 10/20/16 09:00 Hold (Protonix) 40 mg DAILY PO 10/21/16 09:00 Urinary Catheter: No Vascular Central Line Catheter: No A/P Problem List: (1) Nausea & vomiting ICD Code: R11.2 Status: Acute (2) Intractable abdominal pain ICD Code: R10.9 Status: Acute (3) Pyelonephritis ICD Code: N12 Status: Acute (4) Dehydration ICD Code: E86.0 Status: Acute Assessment and Plan 26-year-old female with hx of Arnold-Chiari malformation with shunt placement, visual impairment, anxiety/depression, hypothyroidism, presents with intractable N/V/D/abdominal pain. Intractable Nausea/Vomiting/Diarrhea/Abdominal Pain: suspect gastroenteritis, possible C.diff (with exposure to significant other who is a nurse) or Norovirus. Recent sick contacts. -CT abd/pelvis images reviewed by me, no acute findings -Started on IV Cipro/Flagyl -check stool studies, C.diff PCR, and Norovirus; however patient has not had a BM to collect stool sample -started on PPI -supportive treatment with IVF, antiemetics, pain control prn. -diet as tolerated, patient prefers to stay with full liquids and crackers UTI: possible pyelonephritis with R flank pain, and UA + leuks, WBCs; however patient afebrile without any dysuria/frequency/urgency -continue on IV Cipro as above -monitor urine culture. Hypokalemia: K 3.2 upon arrival, likely secondary to GI losses as above -given po and IV KCl replacement -repeat BMP with K 3.6, monitor. Arnold-Chiari malformation, Visual impairment, s/p [employer] shunt placementwith multiple revisions and replacements 15. Last one was 5 years ago. -does not appear to be causing symptoms at this time, no headache, no signs of infection -continue outpatient follow up with her neurosurgeon Dr. Shelton Anxiety/depression: chronic, continue patient's Cymbalta and Xanax prn. Hypothyroidism: chronic, continue patient's Synthroid. DVT Prophylaxis: lovenox Discharge Planning Possible discharge today if patient is able to tolerate her meals. Discharge patient to home Condition on discharge: Improved Regular Liquid/Soft Diet as tolerated Ad Analia activity Rx written: Cipro 500mg po bid x12 days (14days total), Flagyl 500mg q8h x12 days (14 days total), Protonix 40mg daily [id number], Zofran 4mg SL q8h prn N/V #15 Follow-up with primary care physician within 1 week Problem Qualifiers (1) Nausea & vomiting: Qualified Code: R11.2 - Non-intractable vomiting with nausea, unspecified vomiting type Piper Shea PA-C Oct 21, 2016 08:01 Ronaldo Mckeon MD Oct 22, 2016 01:39
[2016-10-21 08:33] VITALS: BP 131/84; PULSE 75; RESP 18; TEMP 97.5; O2SAT 97
[2016-10-21] MEDS ORDERED: ACETAMINOPHEN 325 MG TAB PO PRN (09:00)
[2016-10-21] MEDS ORDERED: PANTOPRAZOLE SOD 40 MG DELAYED RELEASE TAB PO SCH (09:00)
[2016-10-21 11:54] LABS: BICARBONATE 25.6 MEQ/L (21.0-32.0)
[2016-10-21 12:47] VITALS: BP 108/56; PULSE 85; RESP 16; TEMP 96.9; O2SAT 96
[2016-10-21] MEDS ORDERED: HYDROmorphone HCL PF 1 MG/ML VIAL IV PUSH PRN (13:00)
[2016-10-21] MEDS ORDERED: METR-1 PO (15:04)
[2016-10-21] MEDS ORDERED: PANT40TA3 PO (15:04)
[2016-10-21] MEDS ORDERED: CIPR500T2 PO (15:04)
--- NOTE | 2016-10-21 15:05 | HHI.DCPOC ---
Discharge Care Plan Diagnosis: (1) Intractable abdominal pain (2) Nausea & vomiting (3) Dehydration (4) UTI (urinary tract infection) (5) Gastroenteritis and colitis, viral Goals to Promote Your Health * To prevent worsening of your condition and complications * To maintain your health at the optimal level Directions to Meet Your Goals Take your medications as prescribed Follow your dietary instruction Follow activity as directed Keep your appointments as scheduled Take your immunizations and boosters as scheduled If your symptoms worsen call your PCP, if no PCP go to Urgent Care Center or Emergency Room Smoking is Dangerous to Your Health. Avoid second hand smoke Call the 24-hour hour crisis hotline for domestic abuse at Piper Shea PA-C Oct 21, 2016 15:05
[2016-10-21] MEDS ORDERED: ZOFR4TAB3 SL (15:07)
[2016-11-07] MEDS ORDERED: LISD70 PO (13:44)
[2016-11-08] MEDS ORDERED: CYMB60CA PO (09:52)
[2016-11-08] MEDS ORDERED: LISD70 PO (09:52)
[2016-11-08] MEDS ORDERED: CYMB30CA PO (09:52)
[2016-12-15] MEDS ORDERED: LISD70 PO (10:25)
[2017-01-23] MEDS ORDERED: LISD70 PO (10:33)
[2017-01-23] MEDS ORDERED: CYMB30CA PO (10:33)
[2017-01-23] MEDS ORDERED: CYMB60CA PO (10:33)
== END 2016-10-21 16:15 | disposition home or self-care (01) ==
LOC: NEPC 16:10 → NEDA 20:29 → NEPHCDU 23:41
PROVIDERS: ADMIT Internal Medicine; ATTEND Internal Medicine
DX: N12 Tubulo-interstitial nephritis, not specified as acute or chronic (principal); R19.7 Diarrhea, unspecified; R10.11 Right upper quadrant pain; R50.9 Fever, unspecified; E03.9 Hypothyroidism, unspecified; F17.210 Nicotine dependence, cigarettes, uncomplicated; Z79.899 Other long term (current) drug therapy; E86.0 Dehydration; Z98.2 Presence of cerebrospinal fluid drainage device; H54.8 Legal blindness, as defined in USA; H53.9 Unspecified visual disturbance; Q07.00 Arnold-Chiari syndrome without spina bifida or hydrocephalus; R94.31 Abnormal electrocardiogram [ECG] [EKG]
CPT/HCPCS: 74177; 80048; 80053; 81001; 82550; 83605; 83690; 84703; 85025; 85610; 85730; 87086; 93005; 96361; 96365; 96375; 99285; C9113; G0378; J0744; J1170; J1650; J1885; J2270; J2405; J3480; J7030; Q9963; Q9967